=== PATIENT | male | born 1955 | race Asian ===

== ENCOUNTER 2016-07-03 13:59 | Emergency (ER) | payer OTHER ==
[2016-07-03 14:06] VITALS: BMI 31.8
[2016-07-03] MEDS ORDERED: SODIUM CHLORIDE 1,000 ML IV STA (14:31)
[2016-07-03] MEDS ORDERED: PANTOPRAZOLE SODIUM 40 MG in SODIUM CHLORIDE 100 ML IVPB ONE (14:31)
[2016-07-03] MEDS ORDERED: ACETAMINOPHEN 325 MG TABLET (FP) PO ONE (14:31)
[2016-07-03] MEDS ORDERED: ONDANSETRON 4 MG/2 ML VIAL IVPB ONE (14:31)
[2016-07-03] MEDS ORDERED: FAMOTIDINE 20 MG/50 ML IVPB 50 ML IVPB ONE ×2 (14:31→15:06)
[2016-07-03] MEDS ORDERED: MAG HYDROX/AL HYDROX/SIMETH 30 ML UNIT-DOSE CUP PO ONE (14:31)
[2016-07-03] MEDS ORDERED: SUCRALFATE 1 GM TABLET (FP) PO ONE (14:31)
--- NOTE | 2016-07-03 14:39 | PDOC ---
History of Present Illness - General History Source: Patient Exam Limitations: No Limitations - History of Present Illness Initial Comments: 07/03/16 14:56 The patient is a 61 year old male with a significant past medical history of Acid Reflux, hypertension, hyperlipidemia, and mitral valve prolapse who presents to the ED with complaints of epigastric cramping and vomiting for one day. The patient reports a heartburn like sensation and indigestion that started last night. He reports intermittent epigastric cramping and intermittent nausea and vomiting. Patient reports taking Tums with no relief. He states Tums normally alleviate his symptoms. Denies fevers or chills. Denies diarrhea or haematemesis. Denies chest pain or shortness of breath. Denies dysuria, frequency, urgency, or hesitancy. Denies any other symptoms. Social hx: Denies a history of alcohol, tobacco, or drug use. <Gustavo Doll - Last Filed: 07/03/16 14:56> - General History Source: Patient Exam Limitations: No Limitations <Bud Shelley - Last Filed: 07/03/16 18:33> - General Chief Complaint: Pain Stated Complaint: ABD PAIN/ VOMITING Time Seen by Provider: 07/03/16 14:26 Past History <Gustavo Doll - Last Filed: 07/03/16 14:56> - Past Medical History HTN: Yes - Psycho/Social/Smoking Cessation Hx Anxiety: No Suicidal Ideation: No Smoking History: Never smoked Hx Alcohol Use: No Drug/Substance Use Hx: No Substance Use Type: None <Bud Shelley - Last Filed: 07/03/16 18:33> - Past Medical History Allergies/Adverse Reactions: Allergies Allergy/AdvReac Type Severity Reaction Status Date / Time No Known Allergies Allergy Verified 07/03/16 14:06 Home Medications: Ambulatory Orders Allopurinol [Zyloprim -] 100 mg PO DAILY 07/03/16 Amlodipine Besylate [Norvasc -] 2.5 mg PO DAILY 07/03/16 Atorvastatin Ca [Lipitor] 40 mg PO HS 07/03/16 Citalopram Hydrobromide [Celexa -] 10 mg PO DAILY 07/03/16 Losartan Potassium 100 mg PO DAILY 07/03/16 Metoprolol Succinate [Toprol Xl] 50 mg PO DAILY 07/03/16 Pantoprazole Sodium [Protonix] 40 mg PO DAILY #30 tablet. 07/03/16 Review of Systems - Review of Systems Able to Perform ROS?: Yes Comments:: 07/03/16 14:57 GENERAL/CONSTITUTIONAL: No fever or chills. No weakness. HEAD, EYES, EARS, NOSE AND THROAT: No change in vision. No ear pain or discharge. No sore throat. CARDIOVASCULAR: No chest pain or shortness of breath. RESPIRATORY: No cough, wheezing, or hemoptysis. GASTROINTESTINAL:+ nausea, vomiting, abdominal cramping. No nausea, vomiting, diarrhea or constipation. GENITOURINARY: No dysuria, frequency, or change in urination. MUSCULOSKELETAL: No joint or muscle swelling or pain. No neck or back pain. SKIN: No rash NEUROLOGIC: No headache, vertigo, loss of consciousness, or change in strength/ sensation. ENDOCRINE: No increased thirst. No abnormal weight change. HEMATOLOGIC/LYMPHATIC: No anemia, easy bleeding, or history of blood clots. ALLERGIC/IMMUNOLOGIC: No hives or skin allergy. All Other Systems: Reviewed and Negative <Gustavo Doll - Last Filed: 07/03/16 14:56> *Physical Exam - Vital Signs Last Vital Signs Temp Pulse Resp BP Pulse Ox 99.0 F 98 H 18 119/76 95 07/03/16 14:03 07/03/16 14:03 07/03/16 14:03 07/03/16 14:03 07/03/16 14:03 - Physical Exam Comments: 07/03/16 14:57 GENERAL: Awake, alert, and fully oriented, in no acute distress HEAD: No signs of trauma EYES: PERRLA, EOMI, sclera anicteric, conjunctiva clear ENT: Auricles normal inspection, hearing grossly normal, nares patent, oropharynx clear without exudates. Moist mucosa NECK: Normal ROM, supple, no lymphadenopathy, JVD, or masses LUNGS: Breath sounds equal, clear to auscultation bilaterally. No wheezes, and no crackles HEART: Regular rate and rhythm, normal S1 and S2, no murmurs, rubs or gallops ABDOMEN: + Epigastric tenderness, pascal's sign negative. Soft, normoactive bowel sounds. No guarding, no rebound. No masses EXTREMITIES: Normal range of motion, no edema. No clubbing or cyanosis. No cords, erythema, or tenderness NEUROLOGICAL: Cranial nerves II through XII grossly intact. Normal speech, normal gait SKIN: Warm, Dry, normal turgor, no rashes or lesions noted. <Gustavo Doll - Last Filed: 07/03/16 14:56> - Vital Signs Last Vital Signs Temp Pulse Resp BP Pulse Ox 99.0 F 98 H 18 119/76 95 07/03/16 14:03 07/03/16 14:03 07/03/16 14:03 07/03/16 14:03 07/03/16 14:03 <Bud Shelley - Last Filed: 07/03/16 18:33> Heart Score/ECG Review - History History: Slightly suspicious - Electrocardiogram EKG: Non specific repolarization disturbance - Age Age: 45-65 - Risk Factors Risk Factors Heart Score: Yes Hx Hypercholesterolemia, Yes Hx Hypertension Based on the list above the patient has:: 1-2 risk factors - Troponin Troponin: </= normal limit - Score Heart Score - Total: 3 #1 ECG reviewed & interpreted by me at: 15:45 07/03/16 16:42 NSR 74, left axis deviation, +LVH, no std/simón, QTC 439 msec <Bud Shelley - Last Filed: 07/03/16 18:33> ED Treatment Course - LABORATORY CBC & Chemistry Diagram: 07/03/16 15:00 07/03/16 15:00 <Bud Shelley - Last Filed: 07/03/16 18:33> Medical Decision Making - Medical Decision Making 07/03/16 14:37 A portion of this note was documented by scribe services under my direction. I have reviewed the details of the note, within reason, and agree with the documentation with the following case summary and management plan written by me. Patient treated in the ED. Nursing notes are reviewed and incorporated into the medical decision-making. Vital signs reviewed. Peripheral IV access obtained by the nurse, laboratory studies are drawn and sent, reviewed and interpreted by myself. Vital Signs Temp Pulse Resp BP Pulse Ox 99.0 F 98 H 18 119/76 95 07/03/16 14:03 07/03/16 14:03 07/03/16 14:03 07/03/16 14:03 07/03/16 14:03 61-year-old male with past medical history of hypertension, hyperlipidemia, acid reflux presents with epigastric pain. The patient had developed persistent burning-like epigastric pain but no midsternal chest pain or shortness of breath. Stated that he has taken Tums which has helped before in the past but not today. Came in because symptoms were persistent. Denies fevers, chills. Reports nausea and some vomiting. Denies diarrhea. Denies fevers or sick contacts or recent travels. I suspect that this is likely gastritis. We'll draw labs including lipase. Low likelihood for acute coronary syndrome but we'll send one troponin and EKG. Patient reports was better after GERD medications with a negative workup, we'll discharge patient home. 07/03/16 18:26 CBC, BMP 07/03/16 15:00 07/03/16 15:00 CMP Sodium 140 mmol/L (136-145) 07/03/16 15:00 Potassium 5.2 mmol/L (3.5-5.1) H 07/03/16 15:00 Chloride 98 mmol/L (98-107) 07/03/16 15:00 Carbon Dioxide 31 mmol/L (21-32) 07/03/16 15:00 Anion Gap 11 (8-16) 07/03/16 15:00 BUN 24 mg/dL (7-18) H 07/03/16 15:00 Creatinine 1.3 mg/dL (0.7-1.3) 07/03/16 15:00 Creat Clearance w eGFR 55.94 (>60) 07/03/16 15:00 Random Glucose 131 mg/dL (74-106) H 07/03/16 15:00 Calcium 9.8 mg/dL (8.5-10.1) 07/03/16 15:00 Total Bilirubin 1.8 mg/dL (0.2-1.0) H 07/03/16 15:00 AST 44 U/L (15-37) H 07/03/16 15:00 ALT 32 U/L (12-78) 07/03/16 15:00 Alkaline Phosphatase 62 U/L (45-117) 07/03/16 15:00 Creatine Kinase 256 IU/L (39-308) 07/03/16 15:00 Creatine Kinase Index Y 07/03/16 15:00 CK-MB (CK-2) < 1.000 ng/ml (0.5-3.6) 07/03/16 15:00 CK-MB (CK-2) Rel Index Cancelled 07/03/16 15:00 Troponin I < 0.02 ng/ml (0.00-0.05) 07/03/16 15:00 Total Protein 8.4 g/dl (6.4-8.2) H 07/03/16 15:00 Albumin 4.3 g/dl (3.4-5.0) 07/03/16 15:00 Lipase 138 U/L (73-393) 07/03/16 15:00 Ultrasound reviewed. No acute findings. No gallbladder findings. Patient reports feeling better after the medications. Discharge diagnosis: gastritis. Will discharge with protonix. I discussed the physical exam findings, ancillary test results and final diagnoses with the patient. I answered all of the patient's questions. The patient was satisfied with the care received and felt comfortable with the discharge plan and treatment plan. The patient will call their primary care physician within 24 hours to arrange follow-up and will return to the Emergency Department with any new, persistant or worsening symptoms. <Bud Shelley - Last Filed: 07/03/16 18:33> *DC/Admit/Observation/Transfer - Attestations Scribe Attestion: 07/03/16 14:57 Documentation prepared by Gustavo Doll, acting as medical planner for Bud Shelley MD <Gustavo Doll - Last Filed: 07/03/16 14:56> - Discharge Dispostion Admit: No <Bud Shelley - Last Filed: 07/03/16 18:33> Diagnosis at time of Disposition: Gastritis Qualifiers: Gastritis type: unspecified gastritis Chronicity: acute Gastritis bleeding: without bleeding Qualified Code(s): K29.00 - Acute gastritis without bleeding - Discharge Dispostion Disposition: HOME Condition at time of disposition: Improved - Prescriptions Prescriptions: Pantoprazole Sodium [Protonix] 40 mg PO DAILY #30 tablet.dr - Referrals Referrals: Bunny Zavala [Primary Care Provider] - - Patient Instructions Printed Discharge Instructions: DI for Gastroesophageal Reflux Disease (GERD) Additional Instructions: Please take the 40 mg protonix daily. For additional relief, you may take tums over the counter. [place] diet. Follow up with your primary care physician.
[2016-07-03] MEDS ORDERED: ACETAMINOPHEN 325 MG TABLET (FP) ONE ×2 (15:05→15:11)
[2016-07-03] MEDS ORDERED: SUCRALFATE 1 GM TABLET (FP) ONE (15:05)
[2016-07-03] MEDS ORDERED: PANTOPRAZOLE SODIUM 100 ML IVPB ONE (15:05)
[2016-07-03] MEDS ORDERED: MAG HYDROX/AL HYDROX/SIMETH 30 ML UNIT-DOSE CUP ONE (15:06)
[2016-07-03] MEDS ORDERED: ONDANSETRON 4 MG/2 ML VIAL ONE (15:06)
[2016-07-03 15:07] LABS: BASOPHIL 0.2 % (0-2.0); EOSINOPHIL 0.6 % (0-4.5); MCH 33.4 pg (25.7-33.7); MCHC 33.8 g/dl (32.0-35.9); MEAN CELL VOLUME 98.7 fl (80-96); MEAN PLT VOLUME 9.6 fl (7.5-11.1); NEUTROPHILS 80.6 % (42.8-82.8); PLATELET COUNT 157 K/MM3 (134-434); RDW 13.7 % (11.9-15.9); WHITE BLOOD COUNT 8.6 K/mm3 (4.0-10.0)
[2016-07-03 15:32] LABS: ALBUMIN 4.3 g/dl (3.4-5.0); ANION GAP 11 (8-16); CALCIUM 9.8 mg/dL (8.5-10.1); CO2 31 mmol/L (21-32)
[2016-07-03 15:37] LABS: BILIRUBIN,TOTAL 1.8 mg/dL (0.2-1.0); COCKROFT - GAULT 68.03; CREATININE 1.3 mg/dL (0.7-1.3); GLUCOSE,RANDOM 131 mg/dL (74-106); SGPT/ALT 32 U/L (12-78); TOT PROT 8.4 g/dl (6.4-8.2)
[2016-07-03 15:40] LABS: ALK PHOS 62 U/L (45-117); TROPONIN I < 0.02 ng/ml (0.00-0.05)
[2016-07-03 15:41] LABS: SGOT/AST 44 U/L (15-37)
[2016-07-03] MEDS ORDERED: morphine CARPU-JECT 4 MG/1 ML DISP.SYRIN IVPUSH ONE (16:10)
[2016-07-03] MEDS ORDERED: morphine CARPU-JECT 4 MG/1 ML DISP.SYRIN ONE (16:15)
[2016-07-03 18:58] VITALS: BP 121/72; PULSE 74; TEMP 97.8
--- NOTE | 2016-07-04 14:04 | EKG ---
Test Reason : Blood Pressure : / mmHG Vent. Rate : 074 BPM Atrial Rate : 074 BPM P-R Int : 184 ms QRS Dur : 096 ms QT Int : 396 ms P-R-T Axes : 038 -42 -28 degrees QTc Int : 439 ms NORMAL SINUS RHYTHM LEFT AXIS DEVIATION MINIMAL VOLTAGE CRITERIA FOR LVH, MAY BE NORMAL VARIANT NONSPECIFIC T WAVE ABNORMALITY ABNORMAL ECG WHEN COMPARED WITH ECG OF 13-JAN-2011 01:24, NO SIGNIFICANT CHANGE WAS FOUND Confirmed by ALVARADO FALL MD ([id number]) on 07/04/2016 2:04:35 PM Referred By: Confirmed By:ALVARADO FALL MD
== END 2016-07-03 18:59 | disposition home or self-care (01) ==
LOC: JER 13:59
PROC: 3E033GC Introduction of Other Therapeutic Substance into Peripheral Vein, Percutaneous Approach (ICD-10-PCS; principal; 2016-07-03)
PROC: 3E033GC Introduction of Other Therapeutic Substance into Peripheral Vein, Percutaneous Approach (ICD-10-PCS; 2016-07-03)
PROC: 3E033NZ Introduction of Analgesics, Hypnotics, Sedatives into Peripheral Vein, Percutaneous Approach (ICD-10-PCS; 2016-07-03)
PROC: 3E033GC Introduction of Other Therapeutic Substance into Peripheral Vein, Percutaneous Approach (ICD-10-PCS; 2016-07-03)
DX: K29.00 Acute gastritis without bleeding (principal); K21.9 Gastro-esophageal reflux disease without esophagitis; I10 Essential (primary) hypertension; E78.5 Hyperlipidemia, unspecified; E78.00 Pure hypercholesterolemia, unspecified; I34.1 Nonrheumatic mitral (valve) prolapse
CPT/HCPCS: 36415; 76705-TC; 80053; 82550; 82553; 83690; 84484; 85025; 93005; 93010; 99282-25